=== PATIENT | female | born 1940 | race Caucasian/White ===

== ENCOUNTER 2016-04-24 11:54 | Outpatient (CLI) | payer MEDICARE, OTHER | END 2016-04-24 11:55 | LOC: LAB 11:54 | PROVIDERS: ATTEND Internal Medicine Cardiovascular Disease | DX: Z51.81 Encounter for therapeutic drug level monitoring (principal); Z79.01 Long term (current) use of anticoagulants; I48.91 Unspecified atrial fibrillation | CPT/HCPCS: 36415; 85610 ==

== ENCOUNTER 2016-04-26 12:54 | Outpatient (CLI) | payer MEDICARE, OTHER ==
--- NOTE | 2016-04-26 14:23 | CONSULTATION REPORT ---
REFERRING PHYSICIAN: Dr. Daryl Muniz CONSULTING PHYSICIAN: Pop Devi MD REASON FOR CONSULT: Rheumatology evaluation and continued management of polymyalgia rheumatica. Dear Dr. Muniz: HISTORY OF PRESENT ILLNESS: Thank you for your referral of Milagros Lee for continued management of polymyalgia rheumatica. This is a 75-year-old white woman who prior to had severe shoulder and hip pain that was absolutely disabling. On February 22, a sedimentation rate was done and it was 116. CHRISTIN and rheumatoid factor were normal. Her hemoglobin was slightly depressed at 11.2. She was given prednisone and within 24 hours, she had complete resolution of her symptoms. She is now quite active and in no pain and has no morning stiffness. At no time did she have any headaches, visual loss, difficulty swallowing or painful swallowing. She had no joint swelling or tenderness involving the hands or feet. PAST MEDICAL HISTORY: 1. Skin cancer. 2. Cataracts. 3. Heart attack. 4. Diabetes. 5. Takotsubo cardiomyopathy. 6. Hyperlipidemia. 7. DVT. PRESENT MEDICATIONS: 1. Prednisone 10 mg daily. 2. Simvastatin 20 mg tablets, 40 mg daily. 3. Metformin 1000 mg twice a day. 4. Metoprolol 25 mg twice a day. 5. Coumadin 5 mg daily. 6. Lisinopril/hydrochlorothiazide 20/25 mg 1 tablet daily. 7. Cetirizine 10 mg daily. SOCIAL HISTORY: Patient has never smoked. She has an occasional drink. 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 She takes care of her who is quite disabled. She continues to exercise with stretching and bicycle 2 to 3 times a week. REVIEW OF SYSTEMS: She has put on about 20 pounds. She has no fatigue, weakness, or fever. She has had no red painful eyes and no loss of vision. She has no mouth sores. No difficulty swallowing. No chest pain, shortness of breath, cough or swelling. She had a little bit of swelling of the legs. No nausea, vomiting, or diarrhea. No dark stools or bloody stools. No urinary symptoms. She has some easy bruising which she attributes to her anticoagulation. No color changes in the hands or feet in the cold. No headaches, dizziness, or fainting. She is up to date on her primary care issues. PHYSICAL EXAMINATION: General: On exam, she looks well. Vital Signs: She is 219 pounds. T: 97.6, R: 12, heart rate 64, BP: 150/70. HEENT: No alopecia. No scalp ulcers. No temporal artery tenderness. No occipital artery tenderness. No stomatitis or glossitis. No parotid swelling. Neck: No carotid tenderness. No cervical nodes. Lungs: Clear bilaterally with no crackles or wheezing. Heart: Regular rhythm. Abdomen: Soft and nontender. Vascular: No edema or cyanosis. Peripheral Joints: Changes of OA to DIPs and PIPs. No synovitis of MCPs, wrists, elbows, shoulders, hips, knees, ankles, and feet. IMPRESSION: I agree with the diagnosis of polymyalgia rheumatica. PLAN: I am decreasing her prednisone to 9 mg daily for a month and then 8 mg daily. I will see her back in 2 months. I have discussed with her the need for weight loss, especially while on prednisone. We will check a sedimentation rate today. If not already done, she will need a bone density test. I will discuss that with her at her next visit. Thank you very much. Best regards, cc: Dr. Daryl LOBATO
== END 2016-04-26 12:55 ==
LOC: RHEU 12:54
PROVIDERS: ATTEND Internal Medicine
DX: M35.3 Polymyalgia rheumatica (principal)
CPT/HCPCS: 36415; 85651; 99203; 99204

== ENCOUNTER 2016-05-23 11:19 | Outpatient (CLI) | payer MEDICARE, OTHER | END 2016-05-23 11:20 | LOC: LAB 11:19 | PROVIDERS: ATTEND Internal Medicine Cardiovascular Disease | DX: Z51.81 Encounter for therapeutic drug level monitoring (principal); Z79.01 Long term (current) use of anticoagulants; I48.91 Unspecified atrial fibrillation | CPT/HCPCS: 36415; 85610 ==

== ENCOUNTER 2016-06-05 10:18 | Outpatient (CLI) | payer MEDICARE, OTHER | END 2016-06-05 10:19 | LOC: LAB 10:18 | PROVIDERS: ATTEND Internal Medicine Cardiovascular Disease | DX: Z51.81 Encounter for therapeutic drug level monitoring (principal); Z79.01 Long term (current) use of anticoagulants; I48.91 Unspecified atrial fibrillation | CPT/HCPCS: 36415; 85610 ==

== ENCOUNTER 2016-06-20 13:57 | Outpatient (CLI) | payer MEDICARE, OTHER | END 2016-06-20 14:00 | LOC: LAB 13:57 | PROVIDERS: ATTEND Internal Medicine Cardiovascular Disease | DX: Z51.81 Encounter for therapeutic drug level monitoring (principal); Z79.01 Long term (current) use of anticoagulants | CPT/HCPCS: 36415; 85610 ==

== ENCOUNTER 2016-06-21 11:10 | Outpatient (CLI) | payer MEDICARE, OTHER ==
--- NOTE | 2016-06-24 13:03 | OP Clinic Progress Note ---
REFERRING PHYSICIAN: Dr. Daryl Muniz REASON FOR VISIT: I had the pleasure of seeing Milagros Lee in follow up for polymyalgia rheumatica. She is presently on 8 mg of prednisone and is feeling quite well. She is not having any aches, pains, or morning stiffness. She still has a little discomfort in her hips, as she points to her lower back. She has tolerated the prednisone well. She has had no fevers, chills, sweats, chest pain, shortness of breath, cough or wheezing. She has had no visual loss. No headaches. No scalp tenderness. No pain with swallowing. No tongue pain. No claudication of her extremities. PAST MEDICAL HISTORY: Her past medical history remains unchanged and includes: 1. Skin cancer. 2. Cataracts. 3. Heart attack. 4. Diabetes. 5. Takotsubo cardiomyopathy. 6. Hyperlipidemia. 7. DVT. PRESENT MEDICATIONS: 1. Prednisone 8 mg daily. 2. Simvastatin. 3. Metformin. 4. Metoprolol. 5. Coumadin. 6. Lisinopril. 7. Hydrochlorothiazide. 8. Cetirizine. SOCIAL HISTORY: She continues not to smoke or drink. 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 PHYSICAL EXAMINATION: GENERAL: On exam, she looks well. VITAL SIGNS: Height: 5 feet 4 inches. Weight: 226 pounds. T: 97.5, R: 18 , heart rate 65, BP: 120/60. HEENT: Sclerae are anicteric. Conjunctivae are pink. No stomatitis or glossitis. LUNGS: Clear. HEART: Regular rhythm. ABDOMEN: Soft. VASCULAR: No edema or cyanosis. PERIPHERAL JOINTS: Changes of OA in the DIPs and PIPs, but otherwise, no synovitis at the MCPs, wrists, elbows, shoulders, hips, knees, ankles, and feet. LABORATORY: Her last sedimentation rate was 62, down from 116. Last CHRISTIN and rheumatoid factors have been negative. IMPRESSION: We will continue to treat as polymyalgia rheumatica. PLAN: She is going to decrease her prednisone to 7 mg a day in 1 month and I will see her in 2 months. She has a pro time coming up on the and I have added a CBC, CMP, and a sedimentation rate to monitor disease activity and toxicity and steroid usage. Thank you very much for the opportunity to take care of your patient. Best regards, cc: Dr. Daryl LOBATO
== END 2016-06-21 11:12 ==
LOC: RHEU 11:10
PROVIDERS: ATTEND Internal Medicine
DX: M35.3 Polymyalgia rheumatica (principal)
CPT/HCPCS: 99214; G0463

== ENCOUNTER 2016-07-09 09:29 | Outpatient (CLI) | payer MEDICARE, OTHER ==
[2016-07-09 09:49] LABS: BASOPHILS % 0.7 (0.0-1.5); MEAN CORPUSCULAR HEMOGLOBIN 29.1 pg (28.0-34.0); MEAN CORPUSCULAR VOLUME 93.9 fl (80.0-100.0); MONOCYTES % 3.4 % (0.0-11.0); NEUTROPHILS # 5.8 # k/uL (1.4-7.7)
[2016-07-09 10:16] LABS: eGFR (African) > 60; eGFR (Non-African) > 60
== END 2016-07-09 09:30 ==
LOC: LAB 09:29
PROVIDERS: ATTEND Internal Medicine Cardiovascular Disease
DX: Z51.81 Encounter for therapeutic drug level monitoring (principal); Z79.01 Long term (current) use of anticoagulants; I48.0 Paroxysmal atrial fibrillation
CPT/HCPCS: 36415; 80053; 85025; 85610; 85651

== ENCOUNTER 2016-07-25 07:51 | Outpatient (CLI) | payer MEDICARE, OTHER ==
--- NOTE | 2016-07-25 10:29 | Diagnostic Imaging Report ---
[facility] [address] [facility] [address] [address] Report Submission Date: Jul 25, 2016 10:03:17 AM CDT Patient Study Name: [place] Date: Jul 25, 2016 8:05:57 AM CDT Modality Type: US Gender: F Description: US ABD LIMITED : 38 Institution: [facility] Physician JOSEFA GIRON Ultrasound upper abdomen CLINICAL HISTORY: Right-sided abdominal pain and bloating. TECHNIQUE: Real-time sonography of the upper abdomen is performed in transverse and longitudinal views. FINDINGS: Gallbladder is normally distended. There is no evident gallstone or gallbladder wall thickening and no pericholecystic fluid. Common bile duct measures 2 mm in diameter. There is no intrahepatic ductal dilatation. There is an 8 mm hyperechoic focus in the right kidney consistent with small intrarenal calculus. There is apparent column of Eddie in the midportion of the right kidney. Right kidney and pancreas are otherwise unremarkable. 9 mm cyst is incidentally noted in left hepatic lobe. IMPRESSION: Left hepatic cyst. Intrarenal calculus in the right kidney. Electronically signed on Jul 25, 2016 10:03:17 AM CDT by: Tom LOBATO
== END 2016-07-25 07:52 ==
LOC: RAD 07:51
PROVIDERS: ATTEND Physician Assistant
DX: R10.11 Right upper quadrant pain (principal); R14.0 Abdominal distension (gaseous)
CPT/HCPCS: 76705

== ENCOUNTER 2016-08-05 14:45 | Outpatient (CLI) | payer MEDICARE, OTHER | END 2016-08-05 14:46 | LOC: LAB 14:45 | PROVIDERS: ATTEND Internal Medicine Cardiovascular Disease | DX: Z51.81 Encounter for therapeutic drug level monitoring (principal); Z79.01 Long term (current) use of anticoagulants; I48.0 Paroxysmal atrial fibrillation | CPT/HCPCS: 36415; 85610 ==

== ENCOUNTER 2016-08-23 09:46 | Outpatient (CLI) | payer MEDICARE, OTHER ==
--- NOTE | 2016-08-26 09:19 | OP Clinic Progress Note ---
REASON FOR VISIT: Milagros Lee returns for follow up of polymyalgia rheumatica. She is doing well on 7 mg of prednisone. She has had no headaches. No jaw pain. No loss of vision. She has had no fevers or chills. She has no pain in the lower back and neck. She has some difficulty raising raising her arms but she attributes that to overdoing it. She is getting her garden ready for a walk through or tour. PAST MEDICAL HISTORY: 1. Skin cancer. 2. Cataracts. 3. Coronary artery disease with heart attack. 4. Diabetes. 5. Takotsubo cardiomyopathy. 6. Hyperlipidemia. 7. DVT. PRESENT MEDICATIONS: 1. Prednisone 7 mg daily. 2. Simvastatin. 3. Metformin. 4. Metoprolol. 5. Coumadin. 6. Lisinopril. 7. Hydrochlorothiazide. 8. Cetirizine. SOCIAL HISTORY: No smoking. No drinking. REVIEW OF SYSTEMS: No fevers, chills, sweats, chest pain, shortness of breath, cough, wheezing, nausea, vomiting, or diarrhea. PHYSICAL EXAMINATION: GENERAL APPEARANCE: On exam, she looks well. VITAL SIGNS: Height: 5 feet 4 inches. Weight: 232. T: 97.1, R: 18, heart rate is 69, BP: 135/58. HEENT: No temporal artery tenderness. EOMs are intact. No alopecia. LUNGS: Clear. HEART: Regular rhythm. ABDOMEN: Soft. EXTREMITIES: No peripheral edema. JOINTS: DIPs and PIPs show changes of OA. MCPs, wrists and elbows are unremarkable. She has a little pain with active and passive abduction of her right shoulder but, otherwise, no effusion. Hips, knees, ankles, and feet are grossly unremarkable. DIAGNOSTIC STUDIES: Her labs are reviewed. Her sedimentation rate on July 09 was 28 and prior to that it was 62 and at presentation, 116. IMPRESSION: Polymyalgia rheumatica, improving. PLAN: We will check a sedimentation rate and continue to decrease her prednisone by 1 mg every month. I will see her back in 2 months when I expect her to be on 5 mg. Thank you very much. cc: Dr. Daryl Muniz. [facility]
== END 2016-08-23 09:47 ==
LOC: RHEU 09:46
PROVIDERS: ATTEND Internal Medicine
DX: M35.3 Polymyalgia rheumatica (principal)
CPT/HCPCS: G0463

== ENCOUNTER 2016-09-16 11:40 | Outpatient (CLI) | payer MEDICARE, OTHER | END 2016-09-16 11:42 | LOC: LAB 11:40 | PROVIDERS: ATTEND Internal Medicine Cardiovascular Disease | DX: M35.3 Polymyalgia rheumatica (principal); Z51.81 Encounter for therapeutic drug level monitoring | CPT/HCPCS: 36415; 85610; 85651 ==

== ENCOUNTER 2016-10-01 08:58 | Outpatient (CLI) | payer MEDICARE, OTHER ==
[2016-10-01 09:32] LABS: BASOPHILS % 0.8 (0.0-1.5); EOSINOPHILS % 1.8 % (0.0-6.8); MEAN CORPUSCULAR HEMOGLOBIN 29.8 pg (28.0-34.0); MEAN CORPUSCULAR VOLUME 95.3 fl (80.0-100.0); MONOCYTES % 4.3 % (0.0-11.0); NEUTROPHILS # 5.1 # k/uL (1.4-7.7)
[2016-10-01 10:19] LABS: eGFR (African) > 60; eGFR (Non-African) > 60
== END 2016-10-01 09:00 ==
LOC: LAB 08:58
PROVIDERS: ATTEND Family Medicine
DX: E11.9 Type 2 diabetes mellitus without complications (principal); E78.5 Hyperlipidemia, unspecified; I10 Essential (primary) hypertension
CPT/HCPCS: 36415; 80053; 80061; 83036; 85025

== ENCOUNTER 2016-10-25 09:40 | Outpatient (CLI) | payer MEDICARE, OTHER ==
--- NOTE | 2016-10-28 10:04 | OP Clinic Progress Note ---
Dear Dr. Muniz: REASON FOR VISIT: I had the pleasure of seeing Milagros Lee in follow up for polymyalgia rheumatica. She is doing well. She has had no headaches, jaw pain, pelvic pain , or peripheral joint pain. She had a little right shoulder pain, it feels like something has been pinched. It is worse with use. Her past medical, social, and surgical history is unchanged. PRESENT MEDICATIONS: 1. Prednisone 5 mg daily. 2. Simvastatin. 3. Metformin. 4. Metoprolol. 5. Coumadin. 6. Lisinopril/hydrochlorothiazide. 7. Cetirizine. REVIEW OF SYSTEMS: No fevers, chills, sweats, chest pain, shortness of breath, cough, or wheezing. She did have an episode of symptomatic hypoglycemia last night with a blood glucose of 76. PHYSICAL EXAMINATION: General: On exam, she always looks well. VITAL SIGNS: T: 97.7, heart rate 70, BP: 130/65. Weight: 231. HEENT: No temporal artery tenderness. EOMs are intact. No jaw pain. LUNGS: Clear. HEART: Regular rhythm. ABDOMEN: Soft. PERIPHERAL JOINTS: Unremarkable. She has no shoulder or pelvic girdle tenderness to palpation. ASSESSMENT: Polymyalgia rheumatica, stable. PLAN: I will leave her on 5 mg of prednisone for the next 4 months. She asked that she follow up with you. I would suggest at that time that a sedimentation rate be rechecked. If appropriate, would continue tapering her prednisone by 1 mg monthly at that time until off. Thank you very much for the opportunity to take care of your patients. Best regards, cc: Dr. Daryl LOBATO
== END 2016-10-25 09:42 ==
LOC: RHEU 09:40
PROVIDERS: ATTEND Internal Medicine
DX: M35.3 Polymyalgia rheumatica (principal)
CPT/HCPCS: G0463

== ENCOUNTER 2016-11-08 11:54 | Outpatient (CLI) | payer MEDICARE, OTHER | END 2016-11-08 11:55 | LOC: LAB 11:54 | PROVIDERS: ATTEND Internal Medicine Cardiovascular Disease | DX: I48.0 Paroxysmal atrial fibrillation (principal) | CPT/HCPCS: 36415; 85610; 85651 ==

== ENCOUNTER 2016-12-10 11:59 | Outpatient (CLI) | payer MEDICARE, OTHER | END 2016-12-10 12:00 | LOC: LAB 11:59 | PROVIDERS: ATTEND Internal Medicine Cardiovascular Disease | DX: I48.0 Paroxysmal atrial fibrillation (principal) | CPT/HCPCS: 36415; 85610 ==

== ENCOUNTER 2016-12-25 08:31 | Outpatient (CLI) | payer MEDICARE, OTHER | END 2016-12-25 08:33 | LOC: LAB 08:31 | PROVIDERS: ATTEND Family Medicine | DX: E11.9 Type 2 diabetes mellitus without complications (principal) | CPT/HCPCS: 36415; 83036 ==

== ENCOUNTER → 2017-01-10 | Outpatient (CLI) | payer MEDICARE, OTHER | LOC: LAB 13:14 | PROVIDERS: ATTEND Family Medicine | DX: M35.3 Polymyalgia rheumatica (principal) | CPT/HCPCS: 36415; 85610; 85651 ==

== ENCOUNTER 2017-02-21 09:47 | Outpatient (CLI) | payer MEDICARE, OTHER ==
--- NOTE | 2017-02-21 12:26 | OP Clinic Progress Note ---
Dear Dr. Muniz: REASON FOR VISIT: I had the pleasure of seeing Milagros Lee in follow up. I seem to recall, this lady is now 76 and I met her in April 2016. At that time, she presented with what appeared to be polymyalgia rheumatica. On the prior, she developed shoulder and hip pain and her sedimentation rate was 9316. She was given prednisone with complete resolution of her symptoms. I last saw her in October and by that time, she was on 5 mg of prednisone and doing well. However , she has had recurrence of her pain and this time it is mainly in the lower legs, thighs, knees, and ankles. It is noted that her sedimentation rates have slowly crept up to 64 in November and 72 in January. Other complicating factors have been diabetes and an elevated hemoglobin A1c. PAST MEDICAL HISTORY: 1. Skin cancer. 2. Cataracts. 3. Coronary artery disease. 4. Diabetes. 5. Takotsubo cardiomyopathy. 6. Hyperlipidemia. 7. History of DVT. PRESENT MEDICATIONS: 1. Prednisone 5 mg daily. 2. Simvastatin. 3. Metoprolol. 4. Metformin. 5. Coumadin. 6. Lisinopril. 7. Hydrochlorothiazide. 8. Cetirizine. SOCIAL HISTORY: Nonsmoker. Nondrinker. She is . REVIEW OF SYSTEMS: She has been in good health. No fevers, chills, sweats, chest pain, shortness of breath, cough, wheezing, nausea, vomiting, or diarrhea. No change in her weight. No headaches. No jaw pain. No visual loss. No neurologic symptoms. PHYSICAL EXAMINATION: General: On exam, she looks well. Vital Signs: Weight: 232. Height: 5 feet 4 inches. T: 97.4, heart rate 68 , BP: 150/60. HEENT: Sclerae are anicteric. Conjunctivae are pink. No stomatitis or glossitis. LUNGS: Clear. HEART: Regular rhythm. ABDOMEN: Soft. VASCULAR: No edema or cyanosis. PERIPHERAL JOINTS: No synovitis at the DIPs, PIPs, MCPs, and wrists. Elbows are unremarkable. Good range of motion at the shoulders. Both knees are tender and have valgus deformities. Hard bony swelling. No effusion. Both ankles are tender. MTPs are unremarkable. She is wearing support stockings and has pitting edema of the lower extremities. IMPRESSION: Polymyalgia rheumatica. PLAN: I want to re-evaluate the patient from scratch. This could be resistant polymyalgia rheumatica or a sneaky presentation of something other, like rheumatoid arthritis. I am putting her prednisone back up to 5 mg twice a day. I will check a CBC, CMP, sedimentation rate, CRP and repeat a rheumatoid factor, CCP antibody, and also adding a SPEP. I next opening is in April and I will see her then in follow up. Thank you very much for the opportunity to take care of your patient. Best regards, cc: Dr. Daryl LOBATO
== END 2017-02-21 12:11 ==
LOC: RHEU 09:47
PROVIDERS: ATTEND Internal Medicine
DX: M35.3 Polymyalgia rheumatica (principal); E11.9 Type 2 diabetes mellitus without complications
CPT/HCPCS: 99213; G0463

== ENCOUNTER 2017-02-24 12:48 | Outpatient (CLI) | payer MEDICARE, OTHER ==
[2017-02-24 13:20] LABS: BASOPHILS % 0.7 (0.0-1.5); EOSINOPHILS % 0.9 % (0.0-6.8); MEAN CORPUSCULAR HEMOGLOBIN 29.5 pg (28.0-34.0); MEAN CORPUSCULAR VOLUME 95.2 fl (80.0-100.0); MONOCYTES % 3.4 % (0.0-11.0); NEUTROPHILS # 7.7 # k/uL (1.4-7.7)
[2017-02-24 13:41] LABS: eGFR (African) > 60; eGFR (Non-African) > 60
== END 2017-02-24 12:50 ==
LOC: LAB 12:48
PROVIDERS: ATTEND Internal Medicine Cardiovascular Disease
DX: I48.0 Paroxysmal atrial fibrillation (principal); M13.0 Polyarthritis, unspecified; M35.3 Polymyalgia rheumatica; Z79.899 Other long term (current) drug therapy
CPT/HCPCS: 36415; 80053; 84155; 84165; 84550; 85025; 85610; 85651; 86200; 86431

== ENCOUNTER 2017-03-24 12:14 | Outpatient (CLI) | payer MEDICARE, OTHER | END 2017-03-24 12:15 | LOC: LAB 12:14 | PROVIDERS: ATTEND Internal Medicine Cardiovascular Disease | DX: I48.0 Paroxysmal atrial fibrillation (principal) | CPT/HCPCS: 36415; 85610 ==

== ENCOUNTER 2017-04-08 12:19 | Outpatient (CLI) | payer MEDICARE, OTHER | END 2017-04-08 12:20 | LOC: LAB 12:19 | PROVIDERS: ATTEND Internal Medicine Cardiovascular Disease | DX: I48.0 Paroxysmal atrial fibrillation (principal) | CPT/HCPCS: 36415; 85610 ==

== ENCOUNTER 2017-04-18 09:49 | Outpatient (CLI) | payer MEDICARE, OTHER ==
--- NOTE | 2017-04-22 12:57 | OP Clinic Progress Note ---
Dear Dr. Muniz: REASON FOR VISIT: I had the pleasure of seeing Milagros Lee in follow up. So she is now on prednisone 5 mg twice a day and she is feeling pretty good, certainly better than she did last year. However, she continues with pain and stiffness in her hands but the right ankle is the worst. She has had no new deformities. Her last sedimentation rate was 27. Her rheumatoid serologies were negative. CBC was unremarkable. PAST MEDICAL HISTORY: Past medical history remains unchanged. 1. Skin cancer. 2. Cataracts. 3. Coronary artery disease. 4. Diabetes. 5. Takotsubo cardiomyopathy. 6. Hyperlipidemia. 7. History of DVT. PRESENT MEDICATIONS: 1. Prednisone 5 mg twice a day. 2. Simvastatin. 3. Metoprolol. 4. Metformin. 5. Coumadin. 6. Lisinopril/Hydrochlorothiazide. 7. Cetirizine. SOCIAL HISTORY: She is . Nondrinker. Nonsmoker. REVIEW OF SYSTEMS: No fevers, chills, sweats, chest pain, shortness of breath, cough, wheezing, nausea, vomiting, or diarrhea. She continues to have swelling of her lower extremities, worse on the right than the left. PHYSICAL EXAMINATION: GENERAL: She looks well. VITAL SIGNS: Height: 5 feet 4 inches. Weight: 227. T: 97.1, R: 20, P: 60 and regular, BP: 150/80. HEENT: No temporal artery tenderness. EOMs are intact. LUNGS: Clear. HEART: Regular rhythm. ABDOMEN: Soft. VASCULAR: No edema or cyanosis. JOINTS: DIPs, PIPs, MCPs, wrists, elbows, and shoulders are unremarkable with no synovitis or tenderness. MTPs are unremarkable. Right ankle is tender mainly on the medial aspect inferior to the malleolus, otherwise, good range of motion. The Achilles tendons are unremarkable. IMPRESSION: Seronegative rheumatoid arthritis of multiple sites. DISCUSSION: This is not behaving like polymyalgia rheumatica. PLAN: 1. I am going to x-ray her hands and feet and the right ankle. 2. I am instituting Plaquenil 200 mg twice a day. 3. I have instructed her to decrease her prednisone to 5 mg a day in a month if she can; otherwise, I will re-evaluate her in 2 months. If she remains on 10 mg of prednisone, we will consider methotrexate. Thank you very much. Best regards, cc: Dr. Daryl LOBATO
== END 2017-04-18 09:50 ==
LOC: RHEU 09:49
PROVIDERS: ATTEND Internal Medicine
DX: M06.09 Rheumatoid arthritis without rheumatoid factor, multiple sites (principal)
CPT/HCPCS: 99214; G0463

== ENCOUNTER 2017-04-22 11:10 | Outpatient (CLI) | payer MEDICARE, OTHER | END 2017-04-22 11:11 | LOC: LAB 11:10 | PROVIDERS: ATTEND Internal Medicine Cardiovascular Disease | DX: I48.0 Paroxysmal atrial fibrillation (principal) | CPT/HCPCS: 36415; 85610 ==

== ENCOUNTER 2017-04-24 13:32 | Outpatient (CLI) | payer MEDICARE, OTHER ==
--- NOTE | 2017-04-24 14:46 | Diagnostic Imaging Report ---
AILIN GAMEZ [facility] [address] [facility] [address] [address] Report Submission Date: Apr 24, 2017 2:15:52 PM PANEL MAKER Patient Study Name: BR[place]N [place] Date: Apr 24, 2017 1:44:13 PM PANEL MAKER Modality Type: CR Gender: F Description: LOWER EXTREMITY : 38 Institution: [facility] Physician: AILIN GAMEZ Examination: Plain film ankle History: Ankle discomfort. Findings: 3 views of the ankle demonstrates osteopenia. No fracture or dislocation. Talar dome is intact. Inferior and posterior calcaneal spurs No soft tissue swelling. No joint effusion. Impression: Calcaneal spurs. Osteopenia. No fracture. Electronically signed on Apr 24, 2017 2:15:52 PM PANEL MAKER by: Chapo LOBATO
--- NOTE | 2017-04-24 14:47 | Diagnostic Imaging Report ---
AILIN GAMEZ [facility] [address] [facility] [address] [address] Report Submission Date: Apr 24, 2017 2:17:54 PM OPTICAL SYSTEMS ENGINEER Patient Study Name: BR[place]N [place] Date: Apr 24, 2017 1:40:01 PM OPTICAL SYSTEMS ENGINEER Modality Type: CR Gender: F Description: LOWER EXTREMITY : 38 Institution: [facility] Physician: AILIN GAMEZ Examination: Plain film feet History: Discomfort. Findings: 2 views of the left and right feet demonstrates generalized osteopenia. Articular degenerative changes. Inferior posterior calcaneal spurs. No soft tissue swelling. No joint effusion. Impression: Osteopenia. Degenerative changes. No fracture. Electronically signed on Apr 24, 2017 2:17:54 PM OPTICAL SYSTEMS ENGINEER by: Chapo LOBATO
--- NOTE | 2017-04-24 14:47 | Diagnostic Imaging Report ---
AILIN GAMEZ [facility] [address] [facility] [address] [address] Report Submission Date: Apr 24, 2017 2:14:35 PM SUPERVISOR CHASSIS ASSEMBLY Patient Study Name: BR[place]N [place] Date: Apr 24, 2017 1:47:52 PM SUPERVISOR CHASSIS ASSEMBLY Modality Type: CR Gender: F Description: UPPER EXTREMITY : 38 Institution: [facility] Physician: AILIN GAMEZ Examination: Plain film hands History: Arthritis Comparison exams: None available Findings: 3 views the right and left hands demonstrates mild generalized osteopenia. Articular degenerative spurring. No evidence for fracture. No soft tissue irregularity. Impression: Mild articular degenerative changes. No evidence for fracture. Electronically signed on Apr 24, 2017 2:14:35 PM SUPERVISOR CHASSIS ASSEMBLY by: Chapo LOBATO
== END 2017-04-24 13:33 ==
LOC: RAD 13:32
PROVIDERS: ATTEND Internal Medicine
DX: M13.0 Polyarthritis, unspecified (principal)
CPT/HCPCS: 73610

== ENCOUNTER 2017-05-08 12:10 | Outpatient (CLI) | payer MEDICARE, OTHER | END 2017-05-08 12:11 | LOC: LAB 12:10 | PROVIDERS: ATTEND Internal Medicine Cardiovascular Disease | DX: I48.0 Paroxysmal atrial fibrillation (principal) | CPT/HCPCS: 36415; 85610 ==

== ENCOUNTER 2017-05-14 15:17 | Outpatient (CLI) | payer MEDICARE, OTHER | END 2017-05-14 15:20 | LOC: LAB 15:17 | PROVIDERS: ATTEND Internal Medicine Cardiovascular Disease | DX: I48.0 Paroxysmal atrial fibrillation (principal) | CPT/HCPCS: 36415; 85610 ==

== ENCOUNTER 2017-05-21 09:59 | Outpatient (CLI) | payer MEDICARE, OTHER | END 2017-05-21 10:00 | LOC: LAB 09:59 | PROVIDERS: ATTEND Internal Medicine Cardiovascular Disease | DX: I48.0 Paroxysmal atrial fibrillation (principal) | CPT/HCPCS: 36415; 85610 ==

== ENCOUNTER 2017-06-04 15:17 | Outpatient (CLI) | payer MEDICARE, OTHER | END 2017-06-04 15:20 | LOC: LAB 15:17 | PROVIDERS: ATTEND Internal Medicine Cardiovascular Disease | DX: I48.0 Paroxysmal atrial fibrillation (principal) | CPT/HCPCS: 36415; 85610 ==

== ENCOUNTER 2017-06-20 09:40 | Outpatient (CLI) | payer MEDICARE, OTHER ==
--- NOTE | 2017-06-25 10:35 | OP Clinic Progress Note ---
REASON FOR VISIT: Milagros Lee returns for follow up. This is a lady who had a working diagnosis of polymyalgia rheumatica. She has been stuck on 10 mg of prednisone. I have been suspecting seronegative rheumatoid arthritis. She was started Plaquenil at her last visit. Within 2 or 3 weeks, she developed a rash , itchy, and generalized. Plaquenil has been stopped and the rash has improved. Presently, she has no significant joint pain. Her ankles still bother her. She had x-rays which were reported as unremarkable, just some changes of osteoarthritis. DRUG ALLERGIES: Plaquenil. PRESENT MEDICATIONS: 1. Prednisone 5 mg twice a day. 2. Simvastatin 20 mg 2 tablets daily. 3. Lisinopril/hydrochlorothiazide 20/25 mg. 4. Metformin 1000 mg twice a day. 5. Metoprolol 25 mg twice a day. 6. Baby aspirin. 7. Cetirizine 10 mg daily. REVIEW OF SYSTEMS: Rest of the systems reviewed, no fevers, chills, sweats, chest pain, shortness of breath, cough, wheezing, nausea, vomiting, or diarrhea. PHYSICAL EXAMINATION: VITAL SIGNS: T: 96.8, R: 20, heart rate: 61, BP: 165/90. HEENT: Sclerae are anicteric. Conjunctivae are pink. No stomatitis or glossitis. LUNGS: Clear with no wheezing. HEART: Regular rhythm. ABDOMEN: Soft and nontender. VASCULAR: Shows 1+ edema of her lower extremities. SKIN: A little residual rash on left forearm. PERIPHERAL JOINTS: DIPs, PIPs, MCPs, wrists, elbows, shoulders, hips, knees, ankles, and feet show changes of OA. No overt synovitis. Good alignment. No deformities. 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 IMPRESSION: Seronegative rheumatoid arthritis complicated by an allergy to Plaquenil. PLAN: 1. Before I proceed with methotrexate, we will decrease her prednisone to 5 mg daily and see how she does. If she has recurrence of her symptoms, we will institute methotrexate. 2. I will see her back in 4 weeks. DISCUSSION: In the event that this is steroid-resistant polymyalgia rheumatica, methotrexate will be indicated as well. Thank you very much. cc: Dr. Daryl LOBATO
== END 2017-06-20 13:24 ==
LOC: RHEU 09:40
PROVIDERS: ATTEND Internal Medicine
DX: M06.09 Rheumatoid arthritis without rheumatoid factor, multiple sites (principal); Z88.8 Allergy status to other drugs, medicaments and biological substances
CPT/HCPCS: 99214; G0463

== ENCOUNTER 2017-07-25 | Outpatient (CLI) | payer MEDICARE, OTHER ==
--- NOTE | 2017-07-28 14:53 | OP Clinic Progress Note ---
REASON FOR VISIT: Milagros Lee returns for follow up of polymyalgia rheumatica (I am concerned for seronegative RA). She finally got down to 5 mg of prednisone and she is doing well. She is not having any shoulder or pelvic pain. No painful swelling of her hands, wrists, or feet. Her knees feel weak at times. She has well documented OA of the knees. She is having worsening low back pain. Her is ill and she does all the work around the house including his bathing and so forth. It is causing her quite a lot of stress. He had home health for a while but they no longer qualify. They are not ready for a fpc. ALLERGIES: Plaquenil. PRESENT MEDICATIONS: 1. Prednisone 5 mg daily. 2. Simvastatin 20 mg 2 tablets at bedtime. 3. Lisinopril/hydrochlorothiazide 20/25 mg daily. 4. Metformin 1000 mg twice a day. 5. Metoprolol 25 mg twice a day. 6. Baby aspirin. 7. Cetirizine as needed. REVIEW OF SYSTEMS: No headaches. No jaw pain. No visual disturbance. No chest pain, shortness of breath, cough, wheezing, nausea, vomiting, or diarrhea. No falls. PHYSICAL EXAMINATION: VITAL SIGNS: Height: 5 feet 3 inches. Weight: 231 pounds. T: 97.5, R: 20 , heart rate 70, BP: 130/70. HEENT: No temporal artery tenderness. EOMs are intact. No stomatitis or glossitis. LUNGS: Clear. HEART: Regular rate and rhythm. ABDOMEN: Soft. VASCULAR: No edema or cyanosis. JOINTS: She has changes of osteoarthritis at the DIPs, PIPs, and CMCs, but no tenderness. No synovitis. The MCPs, wrists, elbows, and shoulders are unremarkable. She has knee deformities bilaterally, worse on the right than the left, with hard bony swelling but no instability. Ankles and MTPs are unremarkable. IMPRESSION: Polymyalgia rheumatic. PLAN: 1. We will check a sedimentation rate. 2. Continue 5 mg of prednisone. 3. We will continue to monitor the patient for the possibility of seronegative rheumatoid arthritis. 4. I will see her back in 3 months. Thank you very much. cc: Dr. Daryl LOBATO
== END 2017-07-25 14:53 ==
DX: M35.3 Polymyalgia rheumatica (principal)
CPT/HCPCS: 99214; G0463

== ENCOUNTER 2017-08-11 09:58 | Outpatient (CLI) | payer MEDICARE, OTHER | END 2017-08-11 10:02 | LOC: LAB 09:58 | PROVIDERS: ATTEND Family Medicine | DX: M35.3 Polymyalgia rheumatica (principal); E11.9 Type 2 diabetes mellitus without complications | CPT/HCPCS: 36415; 83036; 85651 ==

== ENCOUNTER 2017-10-24 10:07 | Outpatient (CLI) | payer MEDICARE, OTHER ==
--- NOTE | 2017-10-24 11:48 | OP Clinic Progress Note ---
REASON FOR VISIT: Milagros Lee returns for follow up of polymyalgia rheumatica. She is feeling well on 5 mg of prednisone. She has no joint pain or stiffness. No headaches or jaw pain. No fevers or chills. She still has some weakness in her knees with known underlying osteoarthritis, as well as chronic low back pain, which remains unchanged. PAST MEDICAL HISTORY: 1. DVT. 2. Depression. 3. Hypertension. 4. Hyperlipidemia. 5. Polymyalgia rheumatica. 6. Type 2 diabetes. 7. Takotsubo cardiomyopathy. ALLERGIES: Plaquenil. PRESENT MEDICATIONS: 1. Prednisone 5 mg daily. 2. Simvastatin 20 mg two tablets at bedtime. 3. Lisinopril/hydrochlorothiazide 20/25 mg daily. 4. Metformin 1000 mg twice a day. 5. Metoprolol 25 mg twice a day. 6. Baby aspirin. 7. Cetirizine. REVIEW OF SYSTEMS: No fevers, chills, sweats, chest pain, shortness of breath, cough, wheezing, nausea, vomiting, or diarrhea. PHYSICAL EXAMINATION: VITAL SIGNS: Height: 5 feet 4 inches. Weight: 224 pounds. T: 98, R: 20, heart rate 68, BP: 150/64. HEENT: No temporal artery tenderness. EOMI's are intact. LUNGS: Clear. HEART: Regular rate and rhythm. ABDOMEN: Soft. VASCULAR: No edema or cyanosis. PERIPHERAL JOINTS: No synovitis at the DIPs, PIPs, MCPs, wrists, elbows, shoulders, hips, knees, ankles, and feet. IMPRESSION: Polymyalgia rheumatica. Last sedimentation rate was normal, i.e. 24. PLAN: 1. I am going to continue decreasing her prednisone by 1 mg every 4 weeks. 2. We will continue to monitor her. 3. I am still keeping in mind the possible diagnosis of seronegative rheumatoid arthritis. 3. She will return if her symptoms should worsen. cc: Dr. Daryl LOBATO
== END 2017-10-24 12:31 ==
LOC: RHEU 10:07
PROVIDERS: ATTEND Internal Medicine
DX: M35.3 Polymyalgia rheumatica (principal)
CPT/HCPCS: 99214; G0463

== ENCOUNTER 2017-12-04 09:13 | Outpatient (CLI) | payer MEDICARE, OTHER ==
[2017-12-04 11:33] LABS: BASOPHILS % 0.8 (0.0-1.5); EOSINOPHILS % 2.8 % (0.0-6.8); MEAN CORPUSCULAR VOLUME 93.4 fl (80.0-100.0); MONOCYTES % 4.2 % (0.0-11.0); NEUTROPHILS # 3.8 # k/uL (1.4-7.7)
[2017-12-04 14:14] LABS: eGFR (Non-African) > 60
== END 2017-12-04 09:15 ==
LOC: LAB 09:13
PROVIDERS: ATTEND Family Medicine
DX: E11.9 Type 2 diabetes mellitus without complications (principal); E78.5 Hyperlipidemia, unspecified; I10 Essential (primary) hypertension
CPT/HCPCS: 36415; 80053; 80061; 83036; 85025

== ENCOUNTER 2017-12-10 09:57 | Outpatient (CLI) | payer MEDICARE, OTHER | END 2017-12-10 10:00 | LOC: RAD 09:57 | PROVIDERS: ATTEND Family Medicine | DX: M81.0 Age-related osteoporosis without current pathological fracture (principal); Z92.241 Personal history of systemic steroid therapy | CPT/HCPCS: 77080 ==

== ENCOUNTER 2018-06-01 08:53 | Outpatient (CLI) | payer MEDICARE, OTHER ==
--- NOTE | 2018-06-01 09:32 | Diagnostic Imaging Report ---
JOYCE MCCOLLUM [facility] [address] [facility] [address] [place] [address]. [id number] Report Submission Date: Jun 01, 2018 9:29:20 AM REGIONAL TRAINING MANAGER Patient Study Name: [place] Date: Jun 01, 2018 9:03:54 AM REGIONAL TRAINING MANAGER Modality Type: DX Gender: F Description: BILAT HIPS 2V (W/PEL IF DONE) : 38 Institution: [facility] Physician: JOYCE MCCOLLUM Exam: Bilateral hips. History: Right lower back pain radiating to right hip. AP pelvis, and frog leg lateral views of both hips are submitted. No gross fracture or dislocation is identified. Narrowing, sclerosis and spurring is identified at both hip joints. Narrowing and sclerosis at the symphysis pubis is also identified. Impression: Degenerative changes in both hips and at the since his pubis. Electronically signed on Jun 01, 2018 9:29:20 AM REGIONAL TRAINING MANAGER by: Piter LOBATO
--- NOTE | 2018-06-01 09:32 | Diagnostic Imaging Report ---
JOYCE MCCOLLUM [facility] [address] [facility] [address] [place] [address]. [id number] Report Submission Date: Jun 01, 2018 9:31:01 AM RESIDENT CARE COORDINATOR Patient Study Name: [place] Date: Jun 01, 2018 9:03:54 AM RESIDENT CARE COORDINATOR Modality Type: DX Gender: F Description: L SPINE 2 OR 3 VIEWS : 39 Institution: [facility] Physician: JOYCE MCCOLLUM Exam: Lumbar spine. History: Right-sided lower back pain. No previous studies are available for comparison. AP and lateral view of the lumbar spine are submitted. 5 functional lumbar vertebra are identified. A dextroscoliosis is identified. The vertebral body heights are adequately maintained. Disc space with endplate sclerosis and spurring throughout the lumbar spine is noted. No spondylolisthesis is identified. Atherosclerotic plaque is seen in the abdominal aorta and iliac arteries. Impression: Dextroscoliosis. Multilevel degenerative disc disease. Electronically signed on Jun 01, 2018 9:31:01 AM RESIDENT CARE COORDINATOR by: Piter LOBATO
--- NOTE | 2018-06-01 10:13 | Diagnostic Imaging Report ---
JOYCE MCCOLLUM [facility] [address] [facility] [address] [id number] Report Submission Date: Jun 01, 2018 10:05:27 AM MAMMOGRAPHY TECHNOLOGIST Patient Study Name: [place] Date: Jun 01, 2018 9:05:05 AM MAMMOGRAPHY TECHNOLOGIST Modality Type: US Gender: F Description: US EXTREMITY VEINS UNILAT : 38 Institution: [facility] Physician: JOYCE MCCOLLUM Examination: Ultrasound left vein History: Left calf pain/tenderness Findings: Sonographic evaluation of the left lower extremity venous system from the groin to the popliteal fossa inclusive. Normal compressibility. No luminal filling defect. Normal waveforms and response to augmentation. No popliteal region fluid collection. Images obtained in the region of patient's discomfort without evidence for soft tissue abnormality. Impression: No evidence for deep venous thrombosis. Electronically signed on Jun 01, 2018 10:05:27 AM MAMMOGRAPHY TECHNOLOGIST by: Chapo LOBATO
== END 2018-06-01 08:54 ==
LOC: RAD 08:53
PROVIDERS: ATTEND Family Medicine
DX: M25.551 Pain in right hip (principal); M25.552 Pain in left hip; M54.42 Lumbago with sciatica, left side; M79.662 Pain in left lower leg; M41.86 Other forms of scoliosis, lumbar region; M51.36 Other intervertebral disc degeneration, lumbar region
CPT/HCPCS: 72100; 73521; 93971

== ENCOUNTER 2018-07-06 10:26 | Outpatient (CLI) | payer MEDICARE, OTHER | END 2018-07-06 10:27 | LOC: LAB 10:26 | PROVIDERS: ATTEND Family Medicine | DX: E11.9 Type 2 diabetes mellitus without complications (principal); I10 Essential (primary) hypertension | CPT/HCPCS: 36415; 83036 ==